=== PATIENT | male | born 1980 | race Caucasian/White ===

== ENCOUNTER 2018-01-27 18:32 | Emergency (ER) | payer BC ==
[2018-01-27 18:48] VITALS: BP 145/88; PULSE 91; RESP 18; TEMP 98.9
--- NOTE | 2018-01-27 19:38 | ED ---
Lower Extremity Injury HPI - General Chief Complaint: Extremity Injury, Lower Stated Complaint: LEFT FOOT INJURY Time Seen by Provider: 01/27/18 18:51 Source: patient, RN notes reviewed, old records reviewed Mode of arrival: wheelchair Limitations: no limitations - History of Present Illness Initial Comments: Patient is a 37 year old male with CC of left foot and ankle pain after twisting his ankle and foot going down 3 steps in his garage. No previous injury to the foot or ankle. Denies paresthsias. - Related Data Home Medications Medication Instructions Recorded Confirmed Cetirizine HCl [Zyrtec] 10 mg PO DAILY 01/27/18 01/27/18 Olmesartan/Hydrochlorothiazide 1 tab PO DAILY 01/27/18 01/27/18 [Benicar Hct 40-12.5 mg Tablet] Previous Rx's Medication Instructions Recorded HYDROcodone/APAP 5-325MG [[place] 1 tab PO Q6HR PRN #10 tab 01/27/18 5-325] Allergies Allergy/AdvReac Type Severity Reaction Status Date / Time No Known Allergies Allergy Verified 01/27/18 19:35 Review of Systems ROS Statement: Those systems with pertinent positive or pertinent negative responses have been documented in the HPI. ROS Other: All systems not noted in ROS Statement are negative. Eyes: Reports: as per HPI ENT: Denies: ear pain, throat pain Respiratory: Denies: cough Cardiovascular: Denies: chest pain Endocrine: Denies: fatigue Gastrointestinal: Denies: nausea, vomiting Genitourinary: Denies: urgency Musculoskeletal: Denies: back pain Neurological: Denies: headache Past Medical History Past Medical History: Hypertension Additional Past Medical History / Comment(s): QUIT TAKING BP MEDS APPROX 1 YEAR AGO., HX OF MULTIPLE EAR TUBES,[place] History of Any Multi-Drug Resistant Organisms: None Reported Past Surgical History: Adenoidectomy, Tonsillectomy Additional Past Surgical History / Comment(s): EAR TUBES X8. Past Anesthesia/Blood Transfusion Reactions: Postoperative Nausea & Vomiting ( PONV) Past Psychological History: No Psychological Hx Reported Smoking Status: Unknown if ever smoked Past Alcohol Use History: Occasional Past Drug Use History: Marijuana - Past Family History Mother Family Medical History: No Reported History General Exam - General Exam Comments Initial Comments: 37 year old male, no distress. Limitations: no limitations General appearance: alert, in no apparent distress Head exam: Present: atraumatic, normocephalic, normal inspection Eye exam: Present: normal appearance, PERRL, EOMI. Absent: scleral icterus, conjunctival injection, periorbital swelling ENT exam: Present: normal exam, mucous membranes moist Neck exam: Present: normal inspection. Absent: tenderness, meningismus, lymphadenopathy Respiratory exam: Present: normal lung sounds bilaterally. Absent: respiratory distress, wheezes, rales, rhonchi, stridor Cardiovascular Exam: Present: regular rate, normal rhythm, normal heart sounds. Absent: systolic murmur, diastolic murmur, rubs, gallop, clicks Left Knee exam: Present: normal inspection, full ROM Lower Leg exam: Present: normal inspection, full ROM Ankle exam: Present: full ROM, tenderness (lateral malleolus and 5 th metatarsal.), swelling. Absent: normal inspection Foot/Toe exam: Present: normal inspection, tenderness, swelling Neurovascular tendon exam: Present: no vascular compromise Gait: observed and limited by pain Back exam: Present: normal inspection Neurological exam: Present: alert, oriented X3, CN II-XII intact Course Vital Signs 01/27/18 18:46 Temperature 98.9 F Pulse Rate 91 Respiratory 18 Rate Blood Pressure 145/88 O2 Sat by Pulse 97 Oximetry Procedures - Orthopedic Splinting/Casting Injury #1 Side: right Lower Extremity Injury Location: foot Lower Extremity Immobilizer: posterior splint, Holden wrap, synthetic pre-padded splint Other Orthopedic Equipment: crutches Medical Decision Making - Medical Decision Making 37 year odl male with R foot and ankle pain after falling down 3 stairs. No other injury. Patient has pain and tenderness over 5th metatarsal and lateral malleoulus. He is NV intact. Xrays show 5th metatarsal fracture. Placed in a posterior splint. Written for pain medication. Will follow with PCP and ortho. Discussed non weight bearing. - Radiology Data Radiology results: report reviewed Evidence of 5th metatarsal fracture. Disposition Clinical Impression: Fracture of metatarsal of left foot, closed Disposition: HOME SELF-CARE Condition: Good Instructions: Foot Fracture in Adults (ED) Additional Instructions: Patient has follow-up with airborne sensor specialist. Nonweightbearing on the foot. Return to emergency department if any alarming signs or symptoms occur. Prescriptions: HYDROcodone/APAP 5-325MG [[place] 5-325] 1 tab PO Q6HR PRN #10 tab PRN Reason: Pain Is patient prescribed a controlled substance at d/c from ED?: Yes When asked, does pt state using other controlled substances?: No If prescribed controlled substance>3 days was MAPS reviewed?: Prescribed <3 Days If opioid is for acute pain is fill amount 7 days or less?: Yes If Rx opioid, was Start Talking consent form obtained?: Yes Referrals: Allen Strange Jr, DO [Primary Care Provider] - 1-2 days Grant Campbell MD [STAFF PHYSICIAN] - 1-2 days Time of Disposition: 19:36
--- NOTE | 2018-01-27 20:10 | XR ---
EXAMINATION TYPE: XR ankle complete LT DATE OF EXAM: 01/27/2018 COMPARISON: NONE HISTORY: Lateral pain. TECHNIQUE: 3 views FINDINGS: Ankle mortise is anatomic. There is a small plantar calcaneal spur. There is nondisplaced t ransverse fracture across the proximal shaft of the fifth metatarsal. IMPRESSION: Fifth metatarsal fracture. No ankle fracture.
--- NOTE | 2018-01-27 20:13 | XR ---
EXAMINATION TYPE: XR foot complete LT DATE OF EXAM: 01/27/2018 COMPARISON: NONE HISTORY: Pain TECHNIQUE: 3 views FINDINGS: There is nondisplaced transverse fracture of the midshaft of the fifth metatarsal. There is no dislocation. There is a small plantar calcaneal spur. The remainder of the exam is unremarkable. IMPRESSION: Nondisplaced fifth metatarsal fracture.
== END 2018-01-27 19:50 | disposition home or self-care (01) ==
LOC: EC 18:32
DX: S92.352A Displaced fracture of fifth metatarsal bone, left foot, initial encounter for closed fracture (principal); W10.9XXA Fall (on) (from) unspecified stairs and steps, initial encounter; Y92.89 Other specified places as the place of occurrence of the external cause; I10 Essential (primary) hypertension; Z79.899 Other long term (current) drug therapy
CPT/HCPCS: 29515; 99284

== ENCOUNTER 2020-10-30 10:20 | Emergency (ER) | payer BC ==
[2020-10-30 10:32] VITALS: RESP 18
--- NOTE | 2020-10-30 10:53 | ED ---
General Adult HPI - General Chief complaint: Upper Respiratory Infection Stated complaint: SOB/Covid+ 10/20/20 Time Seen by Provider: 10/30/20 10:30 Source: patient, RN notes reviewed, old records reviewed Mode of arrival: ambulatory Limitations: no limitations - History of Present Illness Initial comments: This is a 39-year-old male who presents emergency department stating that he was tested positive for code on October 20. Patient states he only had a fever for a couple days. Patient states more recently he is been a little bit short of breath. Patient states he coughs occasionally. Patient denies any past medical history significant for hypertension diabetes COPD or asthma. Patient denies any chest pain or palpitations. Patient denies any abdominal pain patient denies any nausea vomiting diarrhea. Patient denies any swelling to legs or calf tenderness. - Related Data Home Medications Medication Instructions Recorded Confirmed Cetirizine HCl [Zyrtec] 10 mg PO DAILY 01/27/18 10/30/20 Olmesartan/Hydrochlorothiazide 1 tab PO DAILY 01/27/18 10/30/20 [Benicar Hct 40-12.5 mg Tablet] Multivitamins, Thera [Multivitamin 1 tab PO DAILY 10/30/20 10/30/20 (formulary)] Previous Rx's Medication Instructions Recorded Albuterol Inhaler [Ventolin Hfa 2 puff INHALATION RT-QID #2 puff 10/30/20 Inhaler] Allergies Allergy/AdvReac Type Severity Reaction Status Date / Time No Known Allergies Allergy Verified 10/30/20 11:26 Review of Systems ROS Statement: Those systems with pertinent positive or pertinent negative responses have been documented in the HPI. ROS Other: All systems not noted in ROS Statement are negative. Past Medical History Past Medical History: Hypertension Additional Past Medical History / Comment(s): QUIT TAKING BP MEDS APPROX 1 YEAR AGO., H[place] OF [place] History of Any Multi-Drug Resistant Organisms: None Reported Past Surgical History: Adenoidectomy, Tonsillectomy Additional Past Surgical History / Comment(s): EAR TUBES X8. Past Anesthesia/Blood Transfusion Reactions: Postoperative Nausea & Vomiting (PONV) Past Psychological History: No Psychological Hx Reported Smoking Status: Never smoker Past Alcohol Use History: Occasional Past Drug Use History: Marijuana - Past Family History Mother Family Medical History: No Reported History General Exam - General Exam Comments Initial Comments: GENERAL: Patient is well-developed and well-nourished. Patient is nontoxic and well- hydrated and is in mild distress. ENT: Neck is soft and supple. No significant lymphadenopathy is noted. Oropharynx is clear. Moist mucous membranes. Neck has full range of motion without eliciting any pain. EYES: The sclera were anicteric and conjunctiva were pink and moist. Extraocular movements were intact and pupils were equal round and reactive to light. Eyelids were unremarkable. PULMONARY: Unlabored respirations. Good breath sounds bilaterally. Patient has some expiratory wheezing. CARDIOVASCULAR: There is a regular rate and rhythm without any murmurs gallops or rubs. ABDOMEN: Soft and nontender with normal bowel sounds. No palpable organomegaly was noted. There is no palpable pulsatile mass. SKIN: Skin is clear with no lesions or rashes and otherwise unremarkable. NEUROLOGIC: Patient is alert and oriented x3. Cranial nerves II through XII are grossly intact. Motor and sensory are also intact. Normal speech, volume and content. Symmetrical smile. MUSCULOSKELETAL: Normal extremities with adequate strength and full range of motion. No lower extremity swelling or edema. No calf tenderness. LYMPHATICS: No significant lymphadenopathy is noted PSYCHIATRIC: Normal psychiatric evaluation. Limitations: no limitations Course Vital Signs 10/30/20 10:29 Temperature 98 F Pulse Rate 74 Respiratory 18 Rate Blood Pressure 133/93 O2 Sat by Pulse 99 Oximetry Medical Decision Making - Medical Decision Making X-ray shows no acute abnormality. Patient will get an albuterol inhaler because of the wheezing. Disposition Clinical Impression: COVID-19 Disposition: HOME SELF-CARE Instructions (If sedation given, give patient instructions): Coronavirus Disease 2019 (COVID-19) Prescriptions: Albuterol Inhaler [Ventolin Hfa Inhaler] 2 puff INHALATION RT-QID #2 puff Is patient prescribed a controlled substance at d/c from ED?: No Referrals: Allen Strange Jr, DO [Primary Care Provider] - 1-2 days Time of Disposition: 11:38
--- NOTE | 2020-10-30 11:09 | XR ---
EXAMINATION TYPE: XR chest 1V portable DATE OF EXAM: 10/30/2020 COMPARISON: NONE HISTORY: Chest pain TECHNIQUE: Single frontal view of the chest is obtained. FINDINGS: There is no focal air space opacity, pleural effusion, or pneumothorax seen. The cardiac silhouette size is within normal limits. The osseous structures are intact. IMPRESSION: 1. No acute process.
[2020-10-30 11:58] VITALS: BP 148/90; PULSE 72; TEMP 97.9
== END 2020-10-30 11:59 | disposition home or self-care (01) ==
LOC: EC 10:20
DX: U07.1 COVID-19 (principal); I10 Essential (primary) hypertension; Z79.899 Other long term (current) drug therapy; Z90.89 Acquired absence of other organs
CPT/HCPCS: 71045; 99285

== ENCOUNTER → 2024-02-27 | Outpatient (CLI) | payer BC ==
--- NOTE | 2024-03-16 15:54 | CONS ---
CONSULTATION REASON FOR CONSULTATION: 43-year-old gentleman has been evaluated in [facility] for possible obstructive sleep apnea-hypopnea syndrome. HISTORY OF PRESENT ILLNESS: Sleep-wake evaluation. The patient's usual sleep schedule is usually from midnight until 6 a.m. on weekdays and weekends. No problems with falling asleep. During the sleep, the patient has loud snoring and witnessed episodes of sleep apnea. The patient has symptoms of excessive daytime sleepiness after awakenings in the morning. [place] Sleepiness Scale is in very high range of 17. Usually, the patient does not take naps. PAST MEDICAL HISTORY: Hypertension, seasonal allergies. PAST SURGICAL HISTORY: Left foot surgery, ear surgery. MEDICATIONS: 1. Cetirizine 10 mg once a day. 2. Olmesartan. 3. Hydrochlorothiazide 40/12.5 mg once a day. SOCIAL HISTORY: Chewing tobacco, alcohol consumption occasional. FAMILY HISTORY: Stomach cancer, hypertension, heart problems, diabetes mellitus. REVIEW OF SYSTEMS: Snoring, awakenings from sleep, sleepiness during the day. No fevers. No double vision. No recent chest pain. No shortness of breath. No abdominal pain. No bleeding episodes. No blood in the urine. No seizure episodes. PHYSICAL EXAMINATION: GENERAL: The patient in no distress. VITAL SIGNS: BP 130/84, HR 84, RR 16, height 6 foot 1 inch, weight 268 pounds, BMI 34.8, temperature 98.1, oxygen saturation at room air %. HEENT: PERRLA, EOMI, evaluation of oropharynx showed tongue protrudes midline. Extremely low position of soft palate, Mallampati 4. NECK: Supple, no JVD. Thyroid is not palpable. Neck, 20 inches in circumference. LUNGS: Clear to percussion and to auscultation. Good air exchange. No wheezing or rhonchi. HEART: S1, S2 regular. No murmurs, gallops, or rubs. ABDOMEN: Soft and nontender. Bowel sounds are present. No organomegaly appreciated. EXTREMITIES: No clubbing or cyanosis. No edema. PATHOLOGY SECRETARY: Awake, alert, and oriented X3. Cranial nerves 2 to 7 intact. There is no fasciculation or atrophy. noted. No focal deficits observed. IMPRESSION: 1. Obstructive sleep apnea, snoring, significant excessive daytime sleepiness with [place] Sleepiness Scale 17; extremely low position of soft palate, Mallampati 4; extremely wide neck, 20 inches in circumference; obstructive sleep apnea-hypopnea syndrome. 2. Obesity. 3. Hypertension. 4. Seasonal allergy. 5. Status post left foot surgery. 6. Status post ear surgery. PLAN: 1. Home sleep apnea test for evaluation of patient's breathing during the sleep. 2. Losing weight. 3. Sleep hygiene regular time in bed for at least 8 hours. 4. No driving if feeling sleepiness. 5. Following plan after reading sleep study. Thank you very much for referring this patient for consultation. MMODL / IJN: [id number] /
== END ==
LOC: 3 N SLEEP 15:00
PROVIDERS: ATTEND Internal Medicine
CPT/HCPCS: 99202

== ENCOUNTER → 2024-09-17 | Outpatient (CLI) | payer BC ==
--- NOTE | 2024-09-19 18:30 | P.PCN ---
Description of Procedure: CLINICAL: A home sleep apnea test has been done for confirmation of possible obstructive sleep apnea-hypopnea syndrome. DESCRIPTION OF PROCEDURE: RESULTS: Recording time was 7 hours 12 minutes. Evaluation time was 6 hours 20 minutes. Evaluation time is sufficient for making conclusion about results of the test. Raw data of sleep recording has been reviewed and is adequate. Respiratory channel showed 423 apneas and 22 hypopneas. Apnea-hypopnea index was 70.1 per hour. Pulse rate in the range between minimum 60, maximum 121, average 82 by computer calculation. Lowest desaturation was 63%. IMPRESSION: 1. Extremely Severe Obstructive Sleep Apnea Hypopnea Syndrome with extremely severe oxygen desaturation. Please see other impressions from consultation. PLAN: 1. The patient should have PAP titration for correction of respiratory abnormallities during sleep. 2. Sleep hygiene with regular time in bed for at least 8 hours. 3. Watching and losing weight. 4. No driving if feeling any sleepiness. Thank you very much for allowing me to participate in the management of your patient. Sincerely, Robin Ruiz MD, PhD, FAASM Diplomat of [place] [employer] Sleep Medicine Board of [place] [employer] Hr Specialist of [facility] [place] cc: Allen Strange DO
== END ==
LOC: 3 N SLEEP 13:00
PROVIDERS: ATTEND Internal Medicine
DX: G47.33 Obstructive sleep apnea (adult) (pediatric) (principal)

== ENCOUNTER 2024-11-28 19:39 | Outpatient (CLI) | payer BC ==
--- NOTE | 2024-11-29 13:18 | P.PCN ---
Description of Procedure: CLINICAL: Titration with positive air pressure has been done for correction of respiratory abnormalities during sleep. DESCRIPTION OF PROCEDURE: The standard montage for clinical polysomnography included the electroencephalogram, the electrocardiogram, the mentalis surface electromyography and Lead II cardiography. The respiratory battery consisted of measurements of nasal /buccal air flow, pressure transducer measurements from the nose, thoracic and /or abdominal effort and intercostal surface electromyography. Video monitoring has been done to check for any parasomnia events. Nocturnal oxyhemoglobin saturations were obtained by finger oximetry. Step-dwyer titration with positive airway pressure was utilized to control respiratory events. Raw data of sleep recording has been reviewed and is adequate. RESULTS: Sleep efficiency was normal 96.4%. Latency to sleep onset was normal 11.5 minutes.]. Sleep architecture showed stage N1 was extremely short 0.4%, Delta sleep was in short range 4.8%, REM sleep was normal 24.3%. Heart rate was minimum 83 BPM, maximum 93 BPM, average 88 BPM. EMG showed 0.6 periodic limb movements per hour with 0 micriarousals per hour. PAP titration have been done with CPAP up to the pressure 15 cm H2O. The best results were at the pressure 15 cm H2O. Apnea hypopnea index reduced to 2.4. IMPRESSION: 1. Obstructive sleep apnea hypopnea syndrome mostly on controle with PAP treatment. 2. No significant periodic limb movements have been documented. Please see other impressions from consultation. PLAN: 1. The patient will have treatment with positive air pressure equipment with the level of pressure AutoPap 515 cm H2O and should use it every night for the whole night. 2. Watching weight. 3. Sleep hygiene with regular time in bed for at least 8 hours. 4. No driving if feeling any sleepiness. 5. I will see the patient for follow up visit to explain the results of the test, recommendations, check compliance with treatment and make any necessary adjustment related to mask fitting, pressure and humidification. Thank you very much for allowing me to participate in the management of your patient. Sincerely, Robin Ruiz MD, PhD, FAASM Diplomat of [place] [employer] Sleep Medicine Board of [place] [employer] A P Supervisor of [facility] [place] cc: Allen Strange DO
== END 2024-11-29 05:35 | disposition home or self-care (01) ==
LOC: 3 N SLEEP 19:39
PROVIDERS: ATTEND Internal Medicine
DX: G47.33 Obstructive sleep apnea (adult) (pediatric) (principal); Z99.89 Dependence on other enabling machines and devices
CPT/HCPCS: 95811

== ENCOUNTER → 2024-11-30 | Outpatient (CLI) | payer BC ==
--- NOTE | 2024-11-30 09:58 | US ---
EXAMINATION TYPE: US carotid duplex BILAT DATE OF EXAM: 11/30/2024 COMPARISON: NONE CLINICAL INDICATION: Male, 43 years old with history of I10 HTN E78.2 JOSE CHOLES E66.9 OBESITY R55 SY NCOPE; dizziness Additional History: R42* Dizziness TECHNIQUE: Grayscale, color Doppler and spectral Doppler evaluation of the bilateral carotid systems and vertebral arteries. Indirect Doppler criteria was utilized. FINDINGS: EXAM MEASUREMENTS: RIGHT: Peak Systolic Velocity (PSV) cm/sec ----- Right CCA: 99.9 ----- Right ICA: 103 ----- Right ECA: 110 ICA/CCA ratio: 1.0 RIGHT: End Diastole cm/sec ----- Right CCA: 38.1 ----- Right ICA: 37.6 ----- Right ECA: 26.5 LEFT: Peak Systolic Velocity (PSV) cm/sec ----- Left CCA: 96.1 ----- Left ICA: 94.9 ----- Left ECA: 112 ICA/CCA ratio: 1.0 LEFT: End Diastole cm/sec ----- Left CCA: 37.6 ----- Left ICA: 40.4 ----- Left ECA: 38.8 VERTEBRALS (direction of flow): Right Vertebral: Antegrade Left Vertebral: Antegrade Rhythm: Normal GROUNDSKEEPER NOTES: No significant stenosis seen Color Doppler imaging shows patency with blood flow throughout the carotid artery. Spectral waveforms are within normal limits. IMPRESSION: Right: No hemodynamically significant stenosis. Left: No hemodynamically significant stenosis. Criteria for Assigning % of Stenosis / Diameter reduction (Estimation based on the indirect measurements of the internal carotid artery velocities (ICA PSV). 1. Normal (no stenosis)=ICA PSV < 180 cm/s: ratio < 2.0: ICA EDV<40 cm/s. 2. Less than 50% stenosis=ICA PSV < 180 cm/s: ratio < 2.0: ICA EDV<40 cm/s. 3. 50 to 69% stenosis=ICA PSV of 180 to 230 cm/s: ration 2.0 ? 4.0: ICA EDV 40-100 cm/s. PSV 125-180 cm/sec and ICA/CCA PSV Ratio ? 2.0 is also consistent with 50-69% stenosis 4. Greater than 70% stenosis to near occlusion= ICA PSV > 230 cm/s: ratio > 4.0: ICA EDV > 100 cm/s. 5. Near occlusion= ICA PSV velocities may be low or undetectable: variable ratio and ICA EDV. 6. Total occlusion=unable to detect flow. [facility], , 11/30/2024 9:56 AM
--- NOTE | 2024-11-30 12:44 | CA ---
Stress Echo Report Alexandre Gandhi Age: 43 Gender: M : 1980 Exam Date: 11/30/2024 10:17 Exam Location: [facility] Ht (in): 76 Wt (lb): 265 Ordering Physician: Allen Strange DO Referring Physician: Pelon Jones Cut Off Saw Operator: PASCUAL Technologist Procedure CPT: Indication: I10 HTN E78.2 JOSE CHOLES E66.9 OBESITY R55 SYNCOPE ICD-9 Codes: Rhythm: Patient History: Syncope and hypertension. Cardiac Medications: OLMESARTAN,,,,,, ROSUVASTATIN,,,,, Medications in past 24 hours: Contrast: Stress Results Protocol: Jorge Total dose(mL): Exercise Duration (min:sec): 9:[address] Depression (mm): Angina Score: Andres Score: METS: 11.1 Resting HR: 97 Resting BP: 140 / 95 Peak HR: 164 Peak BP: 187 / 82 Max Predicted HR: 177 93 % Max Predicted HR Target HR: 150 Double Product: 00998 Stress Summary: BP Response: Reason for Termination: MAX EXERTION/TARGET HR Cardiac Symptoms: NO SYMPTOMS ECG Analysis Resting ECG: Stress ECG: Arrhythmia: Echo Analysis Resting Echo: Peak Echo Analysis: MEASUREMENTS (Male/Female) Normal Values CONCLUSIONS Baseline EKG revealed sinus mechanism with voltage criteria for LVH and minor ST abnormality probably repolarization type changes. Patient walked in send Jorge protocol for 9 minutes 50 seconds and achieved a maximal heart rate of 164 bpm. He developed fatigue and shortness of breath but did not have any angina. There was no arrhythmia there nonspecific ST segment changes which are considered inconclusive findings given the resting EKG changes. This is therefore an inconclusive stress test with good exercise capacity. Baseline echo images revealed normal wall motion and wall thickening of all segments. At peak exercise there was good augmentation of left ventricular wall motion wall thickening of all segments suggesting that there is no evidence of any stress- induced ischemia on the study. Final impression: Fairly good exercise capacity negative stress test by, inconclusive stress test by EKG criteria because of resting EKG changes but no angina. Normal stress echocardiogram without evidence of ischemia Dr. Stephany Kent MD (Electronically Signed) Final Date: 30 Nov 2024 12:43
== END | disposition home or self-care (01) ==
LOC: RADUSWWP 09:25
PROVIDERS: ATTEND Family Medicine
DX: I10 Essential (primary) hypertension (principal); E78.2 Mixed hyperlipidemia; E66.9 Obesity, unspecified; R55 Syncope and collapse; R94.31 Abnormal electrocardiogram [ECG] [EKG]; R53.83 Other fatigue; R06.02 Shortness of breath
CPT/HCPCS: 93351; 93880

== ENCOUNTER → 2025-01-16 | Outpatient (CLI) | payer BC ==
[2025-01-16 14:42] VITALS: BP 133/91; PULSE 96; RESP 16; TEMP 98.3
--- NOTE | 2025-01-16 15:24 | P.PROGSL ---
Subjective DATE: 01/16/2025 FOLLOW UP VISIT. Patient returned to sleep center for follow-up visit discussed results of sleep studies and following plan. I discussed results of sleep studies with patient in details. Home sleep apnea test showed extremely severe sleep apnea with apnea hypopnea index 70.1 and oxygen desaturation to 63%. During titration at the pressure of 15 respiration normalized. Patient continue to snore and wake up from sleep. [place] sleepiness scale is 5. MEDICATIONS: Please see below During physical exam: GENERAL: A pleasant patient without any distress. VITAL SIGNS: Please see below, weight 275.8 pounds. HEENT: PERRLA, EOMI. extremely low position of soft palate Mallampati 4. NECK: Supple. No JVD. LUNGS: Clear to percussion and to auscultation. Good air exchange. No wheezing or rhonchi. HEART: S1, S2 regular. ABDOMEN: Soft and nontender. EXTREMITIES: No clubbing or cyanosis. GAME AUTHOR: Awake, alert, and oriented x3. No focal deficit. Impressions: 1. Extremely severe obstructive sleep apnea hypopnea syndrome with apnea hypopnea index 70.1 2. History of hypertension. 3. Seasonal allergy. 4. Obesity, BMI 37.5. 5. Status post left foot surgery. 6. Status post ear surgery. Plan: 1. Patient will be started on treatment with CPAP and should use equipment every night for the whole night 2. Sleep hygiene with regular time in bed for at least 8 hours. 3. Losing weight 4. Precautions related to driving. No driving if feel any sleepiness. Patient is aware about civil and criminal liability for unsafe driving, promised to follow recommendations. 5. Follow-up visit in 31 to 90 days after patient will start using CPAP to evaluate compliance with treatment, clinical response on treatment and [place] adjustments related to mask fitting pressure and humidification. Thank you very much for allowing me to participate in the management of your patient. Robin Ruiz MD, PhD, FAASM. Diplomat of [place] [employer], Sleep Medicine Board by [place] [employer] Human Resources Manager [employer] [facility] Objective - Vital Signs Vital Signs: Vital Signs Temp 98.3 F 01/16/25 14:40 Pulse 96 01/16/25 14:40 Resp 16 01/16/25 14:40 BP 133/91 01/16/25 14:40 Pulse Ox 96 01/16/25 14:40 FiO2 Intake & Output 01/15/25 01/16/25 01/16/25 18:59 06:59 18:59 Weight 124.965 kg Home Medications: Home Medications Medication Instructions Recorded Confirmed Type Cetirizine HCl [Zyrtec] 10 mg PO DAILY 01/27/18 10/30/20 History Olmesartan/Hydrochlorothiazide 1 tab PO DAILY 01/27/18 10/30/20 History [Benicar Hct 40-12.5 mg Tablet] Albuterol Inhaler [Ventolin Hfa 2 puff INHALATION RT-QID #2 puff 10/30/20 Rx Inhaler] Multivitamins, Thera [Multivitamin 1 tab PO DAILY 10/30/20 10/30/20 History (formulary)]
== END ==
LOC: 3 N SLEEP 14:16
PROVIDERS: ATTEND Internal Medicine
DX: G47.33 Obstructive sleep apnea (adult) (pediatric) (principal); I10 Essential (primary) hypertension; J30.2 Other seasonal allergic rhinitis; E66.9 Obesity, unspecified; Z68.37 Body mass index [BMI] 37.0-37.9, adult; Z98.890 Other specified postprocedural states
CPT/HCPCS: 99212